=== PATIENT | male | born 1990 | race Two or more races ===

== ENCOUNTER 2020-02-19 01:47 | Emergency (ER) | payer MEDICAID, OTHER ==
[~2020-02-19] VITALS: Ht 167.6 cm; Wt 90.7 kg
[2020-02-19] MEDS ORDERED: AMMONIA 0.33 ML INHALANT IN ONE (03:09)
[2020-02-19 04:30] VITALS: BP 123/82
== END 2020-02-19 05:05 | disposition left against medical advice (07) ==
LOC: EDBD 01:47 → ER 01:47
DX: R51.9 Headache, unspecified (principal); F19.10 Other psychoactive substance abuse, uncomplicated